=== PATIENT | female | born 1970 | race Caucasian/White ===

== ENCOUNTER 2017-11-14 20:17 | Emergency (ER) | payer OTHER ==
[~2017-11-14] VITALS: Ht 172.7 cm; Wt 55.5 kg
[~2017-11-14 20:17] MED LIST: ALPR.5 PO; DEPO150I IM; MEDR150I IM; VENTAER INH
[2017-11-14 20:20] VITALS: BP 131/63; PULSE 84; RESP 18; TEMP 98.7; O2SAT 99
[2017-11-14] MEDS ORDERED: CEPH-460 PO (20:37)
[2017-11-14] MEDS ORDERED: ACYC800T PO (20:37)
--- NOTE | 2017-11-14 20:39 | PD ---
HPI Chief Complaint: Skin Problem Time Seen by Provider: 20:26 Travel History International Travel<30 days: No Contact w/Intl Traveler<30days: No Traveled to known affect area: No History of Present Illness HPI 47y female presents to the ED complaining of a lesion on her right buttocks that she noticed yesterday after showering. Patient states that she had an itch , scratched, and then the area felt very sore. She believes she may have been bit but did not see any spider or insect bite her. Patient says she does not have a history of folliculitis or any other of these pimple-like lesions. She denies any exudate to the area. States that she feels like the area feels a little hard but again there is been no exudate. She denies fever chills. Denies general malaise or other pain. Says that her friend had shingles and they had been watching their dog. Denies any other exposures. Says she does have a history of chickenpox. Immunizations are up-to-date. PFSH Past Medical History Asthma: Yes Anxiety: Yes COPD: Yes Diminished Hearing: No Genitourinary: Yes Respiratory: Yes (PULMONARY LUNG DISEASE) Immunizations Current: Yes ?: Not LMP: depo : 2 Para: 2 Tubal Ligation: Yes Past Surgical History Section: Yes (X2) Social History Alcohol Use: No Tobacco Use: Yes Substance Use: No Allergies-Medications (Allergen,Severity, Reaction): Coded Allergies: No Known Allergies (Verified Allergy, Unknown, 11/14/17) Reported Meds & Prescriptions Reported Meds & Active Scripts Active Acyclovir 800 Mg Tab 800 Mg PO 5 TIMES A DAY 7 Days Keflex (Cephalexin) 500 Mg Capsule 500 Mg PO Q8H 7 Days Ventolin Hfa 18 GM Inh (Albuterol Sulfate) 90 Mcg/Act Aer 2 Puff INH Q4H PRN Pharmacy: Please change to insurance accepted equivalent if needed Medroxyprogesterone Inj 150 Mg/Ml Inj 150 Mg IM Q90D Reported Xanax (Alprazolam) 0.5 Mg Tab 0.5 Mg PO DAILY PRN Review of Systems Except as stated in HPI: all other systems reviewed are Neg Physical Exam Narrative GENERAL: Well-nourished, well-developed patient. SKIN: Focused skin assessment warm/dry. Left buttock-2 cm round patch with multiple sized papules on erythematous base, mild induration directly under the papules. No puncta, no fluctuance. HEAD: Normocephalic. EYES: No scleral icterus. No injection or drainage. NECK: Supple, trachea midline. No JVD or lymphadenopathy. CARDIOVASCULAR: Regular rate and rhythm without murmurs, gallops, or rubs. RESPIRATORY: Breath sounds equal bilaterally. No accessory muscle use. MUSCULOSKELETAL: No cyanosis, or edema. BACK: Nontender without obvious deformity. No CVA tenderness. Data Data Last Documented VS Vital Signs Date Time Temp Pulse Resp B/P (MAP) Pulse Ox O2 Delivery O2 Flow Rate FiO2 11/14/17 20:20 98.7 84 18 131/63 (85) 99 Orders Orders Cephalexin (Keflex) (11/14/17 20:45) Acyclovir (Zovirax) (11/14/17 20:45) Ed Discharge Order (11/14/17 20:43) [facility] Medical Decision Making Medical Screen Exam Complete: Yes Emergency Medical Condition: Yes Differential Diagnosis Herpes zoster, varicella zoster, cellulitis, abscess Narrative Course 47y female presents to the ED complaining of a lesion on her right buttocks that she noticed yesterday after showering. Patient states that she had an itch , scratched, and then the area felt very sore. She believes she may have been bit but did not see any spider or insect bite her. Patient says she does not have a history of folliculitis or any other of these pimple-like lesions. She denies any exudate to the area. States that she feels like the area feels a little hard but again there is been no exudate. She denies fever chills. Denies general malaise or other pain. Says that her friend had shingles and they had been watching their dog. Denies any other exposures. Says she does have a history of chickenpox. Immunizations are up-to-date. Patient admits to having a rather stressful several months which may have exacerbated or reactivated the zoster virus. Vital signs stable. The exam findings most consistent with a potential shingles rash. There are small papules of different sizes over erythematous base. No obvious weeping of these lesions. Mild induration to the erythematous area without exudate. I will treat for both shingles and cellulitis. Keflex and acyclovir administered to the emergency department today. These medications were prescribed for outpatient use as well. Patient to follow-up with primary care physician. Advised to monitor for signs of infection. Return to the emergency department worsening or persistent symptoms. Diagnosis Primary Impression: Shingles rash Qualified Codes: B02.9 - Zoster without complications Referrals: Primary Care Physician Patient Instructions: Cellulitis (ED), General Instructions, Shingles (ED) Additional Instructions: Avoid contact with others until all lesions have scabbed and healed. Take all medications as prescribed. Follow-up with primary care physician within 2-3 days. If symptoms persist or worsen return to the emergency department. Monitor for signs of infection. Scripts Acyclovir (Acyclovir) 800 Mg Tab 800 MG PO 5 TIMES A DAY for Mgmt Viral Infection for 7 Days, TAB 0 Refills Prov: Constanza Brown DO 11/14/17 Cephalexin (Keflex) 500 Mg Capsule 500 MG PO Q8H for Infection for 7 Days, #21 CAP 0 Refills Prov: Constanza Brown DO 11/14/17 Disposition: 01 DISCHARGE HOME Condition: Stable Genoveva Cardona Nov 14, 2017 20:39
[2017-11-14] MEDS ORDERED: ACYCLOVIR 800 MG TAB PO ONE (20:45)
[2017-11-14] MEDS ORDERED: CEPHALEXIN MONOHYDRATE 500 MG CAP PO ONE (20:45)
== END 2017-11-14 20:55 | disposition home or self-care (01) ==
LOC: PHEFT 20:17
DX: B02.9 Zoster without complications (principal); J45.909 Unspecified asthma, uncomplicated; F41.9 Anxiety disorder, unspecified; J44.9 Chronic obstructive pulmonary disease, unspecified; Z72.0 Tobacco use; Z79.51 Long term (current) use of inhaled steroids; Z79.899 Other long term (current) drug therapy
CPT/HCPCS: 99283